=== PATIENT | male | born 1945 | race Caucasian/White ===

== ENCOUNTER 2016-11-20 10:56 | Emergency (ER) | payer MEDICARE ==
[2016-11-20 11:05] VITALS: RESP 18; TEMP 97.5
--- NOTE | 2016-11-20 11:09 | ED ---
General Adult HPI - General Chief complaint: Wound/Laceration Stated complaint: Lac Left leg Time Seen by Provider: 11/20/16 11:03 Source: patient, EMS, RN notes reviewed Mode of arrival: EMS Limitations: no limitations - History of Present Illness Initial comments: Patient 71-year-old male who presents emergency room today with a chief complaint of a laceration to the right upper leg. Patient states that he was at a construction site when he tripped over a piece of rebar which causes panic leg causing a laceration to the medial aspect. Patient states that they did put a tourniquet on at the scene as it was bleeding. He states he feels fine otherwise. He states his tetanus is up-to-date. He denies any other complaints or symptoms at this time. Patient denies any recent fever, chills, shortness of breath, chest pain, back pain, abdominal pain, nausea or vomiting, numbness or tingling, dysuria or hematuria, constipation or diarrhea, headaches or visual changes, or any other complaints. - Related Data Home Medications Medication Instructions Recorded Confirmed Fenofibrate [Lofibra] 160 mg PO DAILY 11/20/16 11/20/16 Gabapentin 1,600 mg PO HS 11/20/16 11/20/16 NIFEdipine [Procardia XL] 30 mg PO DAILY 11/20/16 11/20/16 Previous Rx's Medication Instructions Recorded Cephalexin [Keflex] 500 mg PO Q12HR 7 Days 11/20/16 Allergies Allergy/AdvReac Type Severity Reaction Status Date / Time No Known Allergies Allergy Verified 11/20/16 11:12 Review of Systems ROS Statement: Those systems with pertinent positive or pertinent negative responses have been documented in the HPI. ROS Other: All systems not noted in ROS Statement are negative. Past Medical History Past Medical History: Cancer, Hypertension Additional Past Medical History / Comment(s): prostate cancer History of Any Multi-Drug Resistant Organisms: MRSA Date of last positivie culture/infection: 2004 MDRO Source:: right knee Past Surgical History: Back Surgery, Prostate Surgery Additional Past Surgical History / Comment(s): back surgery in 1990, parathyroid surgery in 1994 Past Psychological History: No Psychological Hx Reported Smoking Status: Never smoker Past Alcohol Use History: Occasional Past Drug Use History: None Reported General Exam - General Exam Comments Initial Comments: General: The patient is awake and alert, in no distress, and does not appear acutely ill. Neck: The neck is supple, there is no tenderness or JVD. Cardiovascular: There is a regular rate and rhythm. No murmur, rub or gallop is appreciated. Respiratory: Lungs are clear to auscultation, respirations are non-labored, breath sounds are equal. No wheezes, stridor, rales, or rhonchi. Musculoskeletal: Patient shows good range of motion. Sensations are intact pulses equal bilaterally 2+. Strength 5/5. Neurological: A&O x 3. CN II-XII intact, There are no obvious motor or sensory deficits. Coordination appears grossly intact. Speech is normal. Skin: Large linear laceration to the medial aspect of the right upper thigh. No active bleeding at this time. Psychiatric: Normal mood and affect. Limitations: no limitations Course Vital Signs 11/20/16 10:59 Temperature 97.5 F L Pulse Rate 79 Respiratory 18 Rate Blood Pressure 142/72 O2 Sat by Pulse 96 Oximetry Medical Decision Making - Medical Decision Making 8 cm linear laceration to the right leg.The skin was anesthetized with 1% lidocaine. The laceration was then cleansed with Betadine and irrigated with normal saline. The wound was inspected, and there was no evidence of injury to deep structures. No foreign body was noted in the wound. A total of 22 skin sutures were placed utilizing 4-0 nylon. Disposition Clinical Impression: Laceration Disposition: HOME SELF-CARE Condition: Good Instructions: Laceration (ED) Additional Instructions: Please return to the emergency room in 10-14 days to have sutures removed. Please watch for any signs of infection which may include increased pain, swelling, redness, fever or chills. Please return to emergency room for any signs of infection do occur. Please use clean soap and water over the area to prevent scabbing over your stitches. Please leave wound covered for the first 24-48 hours and then leave wound open to air. Please return to the emergency room for any other concerns. Prescriptions: Cephalexin [Keflex] 500 mg PO Q12HR 7 Days Referrals: Jong Metz MD [Primary Care Provider] - 1-2 days Time of Disposition: 12:16
[2016-11-20 12:48] VITALS: BP 132/80; PULSE 68
== END 2016-11-20 12:48 | disposition home or self-care (01) ==
LOC: EC 10:56
DX: S71.111A Laceration without foreign body, right thigh, initial encounter (principal); W18.40XA Slipping, tripping and stumbling without falling, unspecified, initial encounter; I10 Essential (primary) hypertension; Z85.46 Personal history of malignant neoplasm of prostate; Z79.899 Other long term (current) drug therapy
CPT/HCPCS: 12004; 99283